=== PATIENT | female | born 1990 | race Caucasian/White ===

== ENCOUNTER 2016-11-11 22:24 | Emergency (ER) | payer OTHER | END 2016-11-12 04:09 | disposition home or self-care (01) | LOC: ER1 22:24 | DX: L03.314 Cellulitis of groin (principal); L02.214 Cutaneous abscess of groin; F17.210 Nicotine dependence, cigarettes, uncomplicated; Z88.1 Allergy status to other antibiotic agents; Z88.0 Allergy status to penicillin; Z88.2 Allergy status to sulfonamides; Z88.6 Allergy status to analgesic agent | CPT/HCPCS: 10061; 36415; 96372; 99283; J7030; Q0163; Q0177 ==